=== PATIENT | male | born 1980 | race Caucasian/White ===

== ENCOUNTER 2017-07-17 14:11 | Emergency (ER) | payer OTHER ==
[2017-07-17 14:19] VITALS: RESP 18
--- NOTE | 2017-07-17 14:28 | CPEKG ---
Heart Rate: 88 RR Interval: 682 P-R Interval: 144 QRSD Interval: 86 QT Interval: 360 QTC Interval: 436 P [place]: 33 QRS [place]: -63 T Wave [place]: 45 EKG Severity - ABNORMAL ECG - EKG Impression: SINUS RHYTHM EKG Impression: LEFT ANTERIOR FASCICULAR BLOCK Electronically Signed By: Trip Logan 17-Jul-2017 23:31:38
--- NOTE | 2017-07-17 15:15 | EDPHY ---
H & P Stated Complaint: Feels SOB,tightness in chest when he breathes Time Seen by Provider: 07/17/17 14:53 HPI/ROS: Chief Complaint: Cough, shortness of breath, chest tightness HPI: A 37-year-old male visiting from dialysis for the past week who is been having some difficulty catching his breath with some tightness in his chest for the past several days. Patient has also had some left arm discomfort which has been constant for the last 7-10 days. He believes this is after sleeping on it wrong. He also [place]. He has been having episodes of persistent cough for the last couple of years and has been worked up extensively for this including chest x-ray, EKG, and blood work. He has not had a stress test. Chest tightness is constant, particularly with deep inspiration. No pain with inspiration. Does believe that over the last couple years he has developed decreasing exercise tolerance but he has attributed this to some weight gain as well. No fevers or chills. At worst pain is about a 2/ 10. No nausea or vomiting. Does have some episodes of GERD in the past. He has also been taking prescribed Flonase in the past but is not taking this. No family history of coronary disease. No family history of blood clotting disorders. ROS: 10 point Review of Systems is negative except as noted in the HPI. PMH: GERD Medications: None Allergies: None Social History: No smoking, occasional alcohol, no recreational drug use Family History: Father has back issues, mother has hypertension, no family history of coronary artery disease Physical Exam: Gen: Awake, Alert, No Distress HEENT: Nose: no rhinorrhea Eyes: PERRLA, EOMI Mouth: Moist mucosa Neck: Supple, no JVD Chest: nontender, lungs clear to auscultation Heart: S1, S2 normal, no murmur Abd: Soft, non-tender, no guarding Back: no CVA tenderness, no midline tenderness Ext: no edema, non-tender Skin: no rash Neuro: CN II-XII intact, Sensation grossly intact, Strength 5/5 in bilateral upper and lower extremities - Personal History Current Tetanus Diphtheria and Acellular Pertussis (TDAP): Unsure - Medical/Surgical History Other PMH: GERD. familial hx HTN, CA - Social History Smoking Status: Never smoked Constitutional: Initial Vital Signs Temperature (C) 36.9 C 07/17/17 14:13 Heart Rate 85 07/17/17 14:13 Respiratory Rate 18 07/17/17 14:13 Blood Pressure 156/112 H 07/17/17 14:13 O2 Sat (%) 97 07/17/17 14:13 O2 Delivery Mode Room Air Allergies/Adverse Reactions: No Known Allergies Allergy (Unverified 07/17/17 14:19) Home Medications: Medication Instructions Recorded NK [No Known Home Meds] 07/17/17 Medical Decision Making - Diagnostics EKG Interpretation: ECG time 2:26 p.m., sinus rhythm with a rate of 89, a there is a left anterior fascicular block. Normal intervals, no acute ST or T-wave changes. Impression : No acute ischemia. Imaging Results: Imaging Impressions Chest X-Ray 07/17/17 15:15 Impression: Mild hypoventilatory features with some posterior basilar subsegmental atelectasis. ED Course/Re-evaluation: Chest x-ray shows some mild hypoventilatory features with some mild atelectasis , no focal infiltrates. ECG shows no acute findings. Chemistry CBC and troponin are unremarkable. Patient's shortness of breath has been worsening last year to suspect is exacerbated by his trip to [facility] now. He is also having some bleeding crease and is obese at this time, which is contributing to his shortness of breath. There is no evidence of acute cardiopulmonary process at this time. He has no risk factors or symptoms suggestive of PE. No findings suggestive of acute coronary syndrome. I think he would benefit from having stress test as an outpatient. Given his coughing fits that are worse in the morning there could be a sinus component as well. I have recommended they follow up with [facility] when he returns to [place]. - Data Points Laboratory Results: Laboratory Results 07/17/17 14:35 07/17/17 14:35 07/17/17 07/17/17 14:35 14:35 WBC 7.59 10^3/uL 10^3/uL (3.80-9.50) RBC 5.34 10^6/uL 10^6/uL (4.40-6.38) Hgb 16.4 g/dL g/dL (13.7-17.5) Hct 47.6 % % (40.0-51.0) MCV 89.1 fL fL (81.5-99.8) MCH 30.7 pg pg (27.9-34.1) MCHC 34.5 g/dL g/dL (32.4-36.7) RDW 12.5 % % (11.5-15.2) Plt Count 323 10^3/uL 10^3/uL (150-400) MPV 10.3 fL fL (8.7-11.7) Neut % (Auto) 52.0 % % (39.3-74.2) Lymph % (Auto) 38.2 % % (15.0-45.0) [place] % (Auto) 8.3 % % (4.5-13.0) Eos % (Auto) 0.8 % % (0.6-7.6) Baso % (Auto) 0.4 % % (0.3-1.7) Nucleat RBC Rel Count 0.0 % % (0.0-0.2) Absolute Neuts (auto) 3.95 10^3/uL 10^3/uL (1.70-6.50) Absolute Lymphs (auto) 2.90 10^3/uL 10^3/uL (1.00-3.00) Absolute Monos (auto) 0.63 10^3/uL 10^3/uL (0.30-0.80) Absolute Eos (auto) 0.06 10^3/uL 10^3/uL (0.03-0.40) Absolute Basos (auto) 0.03 10^3/uL 10^3/uL (0.02-0.10) Absolute Nucleated RBC 0.00 10^3/uL 10^3/uL (0-0.01) Immature Gran % 0.3 % % (0.0-1.1) Immature Gran # 0.02 10^3/uL 10^3/uL (0.00-0.10) Sodium 141 mEq/L mEq/L (134-144) Potassium 4.4 mEq/L mEq/L (3.5-5.2) Chloride 103 mEq/L mEq/L (97-110) Carbon Dioxide 24 mEq/l mEq/l (22-31) Anion Gap 14 mEq/L mEq/L (8-16) BUN 11 mg/dL mg/dL (7-23) Creatinine 0.9 mg/dL mg/dL (0.7-1.3) Estimated GFR > 60 Glucose 106 mg/dL H mg/dL (70-100) Calcium 9.8 mg/dL mg/dL (8.5-10.4) Total Bilirubin 0.5 mg/dL mg/dL (0.1-1.4) AST 32 IU/L IU/L (17-59) ALT 48 IU/L IU/L (21-72) Alkaline Phosphatase 78 IU/L IU/L (38-126) Troponin I Pending Total Protein 8.0 g/dL g/dL (6.3-8.2) Albumin 4.6 g/dL g/dL (3.5-5.0) Departure - Departure Disposition: Home, Routine, Self-Care Clinical Impression: Dyspnea Condition: Good Instructions: Dyspnea (ED) Additional Instructions: Follow up with your primary care physician when you return home to [place]. I would recommend to have a stress test done within the next week. You may also benefit from a consultation with an ear nose and throat doctor. Return to the emergency department for increasing shortness of breath, arm pain , fevers, chills, worsening cough, or any other concerns. Referrals: LEOLA BATISTA [Other] - As per Instructions
[2017-07-17 15:30] LABS: % IMMATURE GRANULYOCYTES 0.3 % (0.0-1.1); ABSOLUTE IMMATURE GRANULOCYTES 0.02 10^3/uL (0.00-0.10); ADD DIFF? NO; ADD MORPH? NO; ADD SCAN? NO; ALANINE AMINOTRANSFERASE 48 IU/L (21-72); ALBUMIN 4.6 g/dL (3.5-5.0); ALKALINE PHOSPHATASE 78 IU/L (38-126); ANION GAP 14 mEq/L (8-16); ASPARTATE AMINOTRANSFERASE 32 IU/L (17-59); ATYPICAL LYMPHOCYTE FLAG 0 (0-99); BILIRUBIN,TOTAL 0.5 mg/dL (0.1-1.4); CALCIUM 9.8 mg/dL (8.5-10.4); CARBON DIOXIDE 24 mEq/l (22-31); CHLORIDE 103 mEq/L (97-110); CREATININE 0.9 mg/dL (0.7-1.3); FRAGMENT RBC FLAG 20 (0-99); GLOMERULAR FILTRATION RATE > 60; GLUCOSE 106 mg/dL (70-100); HEMATOCRIT 47.6 % (40.0-51.0); HEMOGLOBIN 16.4 g/dL (13.7-17.5); LEFT SHIFT FLG 0 (0-99); LIPEMIA HEMOLYSIS FLAG 90 (0-99); MEAN CELL HEMOGLOBIN 30.7 pg (27.9-34.1); MEAN CELL HEMOGLOBIN CONCENTR. 34.5 g/dL (32.4-36.7); MEAN CELL VOLUME 89.1 fL (81.5-99.8); MEAN PLATELET VOLUME 10.3 fL (8.7-11.7); PLATELET CLUMPS FLAG 20 (0-99); PLATELET COUNT 323 10^3/uL (150-400); POTASSIUM 4.4 mEq/L (3.5-5.2); RED BLOOD CELL COUNT 5.34 10^6/uL (4.40-6.38); RED CELL DISTRIBUTION WIDTH 12.5 % (11.5-15.2); SODIUM 141 mEq/L (134-144)
[2017-07-17 15:40] LABS: TROPONIN I < 0.012 ng/mL (0.000-0.034)
[2017-07-17 16:17] VITALS: BP 141/89; PULSE 87; TEMP 98.2; O2SAT 93
== END 2017-07-17 16:41 | disposition home or self-care (01) ==
DX: R06.00 Dyspnea, unspecified (principal)